=== PATIENT | male | born 1990 | race Caucasian/White ===

== ENCOUNTER 2017-01-24 16:18 | Emergency (ER) | payer OTHER ==
[~2017-01-24] VITALS: Ht 172.7 cm; Wt 77.0 kg
[~2017-01-24 16:18] MED LIST: CELEXA10 MG PO; DEPADE50 MG PO; LIBRIUM25 MG PO; NOHOMEMEDS; TRAZODONE HCL50 MG PO; folic acid; thiamine; vitamins
[2017-01-24 16:58] LABS: HEMATOCRIT 43.9 % (38.0-50.0); MCH 30.2 PG (29.0-34.0); MCV 83.9 FL (86-99); PLATELET COUNT 158 K/uL (156-360); RBC DIS.WIDTH-CV 12.1 % (11.8-14.6); RBC DIS.WIDTH-SD 36.5 % (39-53); RED BLOOD COUNT 5.23 M/uL (4.00-5.50); WHITE BLOOD COUNT 5.2 K/uL (4.1-10.2)
[2017-01-24 17:06] LABS: CHLORIDE 105 mEq/L (99-109); POTASSIUM 3.9 mEq/L (3.7-5.4); SODIUM 144 mEq/L (136-147)
[2017-01-24 17:08] LABS: GLUCOSE 101 mg/dL (70-99)
[2017-01-24 17:10] LABS: ANION GAP 12 MEQ/L (2-14); TOTAL BILIRUBIN 1.1 mg/dL (0.0-1.0)
[2017-01-24 17:11] LABS: SERUM ETHYL ALCOHOL 355 mg/dL
[2017-01-24 17:12] LABS: ALKALINE PHOSPHATASE 60 IU/L (3-129); GFR ESTIMATE (CALCULATED) > 59 mL/min/ (58.99-99999)
[2017-01-24 17:13] LABS: UREA NITROGEN (BUN) 16 mg/dL (9-23)
[2017-01-24 17:14] LABS: DIRECT BILIRUBIN 0.4 mg/dL (0.0-0.3)
[2017-01-24 17:33] LABS: AMPHETAMINE NEGATIVE (500 ng/mL); BARBITURATES NEGATIVE (200 ng/mL); BENZODIAZEPINES NEGATIVE (150 ng/mL); COCAINE NEGATIVE (150 ng/mL); INTERNAL CONTROLS VALID? YES; METHADONE NEGATIVE (200 ng/mL); METHAMPHETAMINE NEGATIVE (500 ng/mL); OPIATES (MORPHINE) NEGATIVE (100 ng/mL); OXYCODONE NEGATIVE (100 ng/mL); PHENCYCLIDINE NEGATIVE (25 ng/mL); PROPOXYPHENE NEGATIVE (300 ng/mL); THC CANNABINOIDS NEGATIVE (50 ng/mL); TRICYCLIC ANTIDEPRESSANTS NEGATIVE (300 ng/mL)
[2017-01-25 03:52] VITALS: BP 122/87
== END 2017-01-25 03:55 | disposition home or self-care (01) ==
LOC: EME 16:18
PROVIDERS: Nurse Practitioner Family
DX: F10.10 Alcohol abuse, uncomplicated (principal); Y90.8 Blood alcohol level of 240 mg/100 ml or more; F33.3 Major depressive disorder, recurrent, severe with psychotic symptoms; F31.9 Bipolar disorder, unspecified; F17.200 Nicotine dependence, unspecified, uncomplicated
CPT/HCPCS: 80053; 82248; 82693 90; 85027; 90839; 99281; 99284; G0480; J2060; Q0177